=== PATIENT | female | born 1965 | race Caucasian/White ===

== ENCOUNTER → 2016-10-20 | Outpatient (REF) | payer OTHER | LOC: M SFHCPLAZ 10:14 | PROVIDERS: ATTEND Physician Assistant Medical | DX: M51.36 Other intervertebral disc degeneration, lumbar region (principal) ==

== ENCOUNTER → 2021-04-10 | Outpatient (CLI) | payer OTHER ==
--- NOTE | 2021-04-11 00:32 | ECWPNPC ---
PATIENT NAME: PAMELA DAVIDSON : 1965 GENDER: FEMALE VISIT DATE: 04/10/2021 DISCHARGE DATE: 04/10/21940 VISIT LOCKED DATE TIME: PHYSICIAN: TIESHA RINALDI PHYSICIAN PAGER NO: ACTIVE RESOURCE: TIESHA RINALDI REASON FOR APPOINTMENT 1. CHRONIC PAIN W/RHEUMATOID ARTHRITIS AND DJD LUMBAR SPINE HISTORY OF PRESENT ILLNESS GENERAL: HPI 55-YEAR-OLD FEMALE IN FOR INITIAL PAIN CONSULT REGARDING CHRONIC PAIN STEMMING FROM RHEUMATOID ARTHRITIS. PATIENT HAS BEEN ON PERCOCET 5/325 MG 3 TIMES DAILY DOSING IN THE PAST WITH GOOD RELIEF HOWEVER THE DOCTOR THAT WAS PREVIOUSLY PRESCRIBING THAT FOR HER HAD LEFT AND THE NEW DOCTOR DROPPED HER DOWN TO TWICE DAILY DOSING. SINCE THE DECREASE IN DOSAGE PATIENT ADMITS TO INCREASED SYMPTOMS. SHE RATES HER PAIN CURRENTLY AT A 7 OUT OF 10 AND DESCRIBES IT ACHING, AND THROBBING.. - - -. FALL RISK SCREENING: SCREENING : NO FALLS REPORTED IN THE LAST YEAR , : NO FALLS REPORTED IN THE LAST YEAR. PAIN SCREENING: PATIENT HAS A COMPLAINT OF ACUTE OR CHRONIC PAIN :YES LOCATION OF PAIN:LOW BACK, LEFT HIP, RIGHT HIP, FEET, OTHER: LEFT FOOT, KNUCKLES INTENSITY OF PAIN (SCALE OF 1 TO 10):7 WHAT DOES YOUR PAIN FEEL LIKE:ACHING, THROBBING, SORE, OTHER TIGHTNESS DURATION:CONTINOUS, CONSTANT, ALL DAY PAIN IS INCREASED BY:ACTIVITIES, PROLONGED STANDING, OTHERS COLD WEATHER PAIN IS DECREASED BY:USE OF PAIN MEDICATIONS, OTHERS WARM BATH NURSING NOTE: - - -. PAIN CENTER INTAKE QUESTIONS: DO YOU HAVE A HISTORY OF MRSA? :NO DO YOU TAKE A BLOOD THINNERS? :NO DO YOU HAVE ANY BLEEDING DISORDERS? :NO ANY NEW NUMBNESS OR WEAKNESS IN YOUR LEGS OR ARMS? :NO ANY PACEMAKER,DEFIBRILLATOR, OR DORSAL COLUMN STIMULATOR? :NO DO YOU HAVE ANY RASHES OR OPEN SORES? :NO ARE YOU ALLERGIC TO IV DYE? :NO ARE YOU DIABETIC? :NO ANY NEW PROBLEMS WITH YOUR MEDICATIONS? :NO HAVE YOU RECEIVED A VACCINE IN THE PAST 30 DAYS? :NO DO YOU PLAN TO RECEIVE A VACCINE IN THE NEXT 21 DAYS? :NO DO YOU NEED ANY PRESCRIPTION? :NO DO YOU TAKE ANY IMMUNOSUPPRESSIVE MEDICATIONS? :YES ENBREL WEEKLY, LEFLUNAMIDE DAILY IS THERE A CHANCE YOU COULD BE ? :NO ARE YOU BREAST FEEDING? :NO CURRENT MEDICATIONS TAKING ENBREL SURECLICK 50 MG/ML SOLUTION AUTO-INJECTOR DIRECTED SUBCUTANEOUS WEEKLY ON FRIDAYS TAKING FOLIC ACID 1 MG TABLET 1 TABLET ORALLY ONCE A DAY TAKING LEFLUNOMIDE 20 MG TABLET 1 TABLET ORALLY ONCE A DAY TAKING ESOMEPRAZOLE MAGNESIUM 20 MG CAPSULE DELAYED RELEASE 1 CAPSULE ORALLY ONCE A DAY TAKING PEPCID 20 MG TABLET 1 TABLET AT MEALTIME ORALLY ONCE A DAY TAKING K-TAB 20 MEQ TABLET EXTENDED RELEASE 1 TABLET WITH FOOD ORALLY ONCE A DAY TAKING VITAMIN D3 MAXIMUM STRENGTH 125 MCG (5000 UT) CAPSULE DIRECTED ORALLY DAILY TAKING MAGNESIUM 400 MG CAPSULE DIRECTED ORALLY DAILY TAKING AMLODIPINE BESYLATE 10 MG TABLET 1 TABLET ORALLY ONCE A DAY TAKING PERCOCET 5-325 MG TABLET 1 TABLET ORALLY BID NEEDED NOT-TAKING METFORMIN HCL ER 500 MG TABLET EXTENDED RELEASE 24 HOUR 1 TABLET WITH EVENING MEAL ORALLY ONCE A DAY NOT-TAKING GUAIFENESIN ER 1200 MG TABLET EXTENDED RELEASE 12 HOUR 1 TABLET NEEDED ORALLY EVERY 12 HRS NOT-TAKING BACLOFEN 10 MG TABLET 1 HALF TABLET WITH FOOD OR MILK ORALLY TWICE DAILY NEEDED NOT-TAKING CELEBREX 100 MG CAPSULE 1 CAPSULE ORALLY TWICE A DAY NOT-TAKING NEXIUM 40 MG CAPSULE DELAYED RELEASE 1 CAPSULE ORALLY ONCE A DAY NOT-TAKING SIMVASTATIN 20 MG TABLET 1 TABLET IN THE EVENING ORALLY ONCE A DAY NOT-TAKING PROTONIX 40 MG TABLET DELAYED RELEASE 1 TABLET ORALLY ONCE A DAY MEDICATION LIST REVIEWED AND RECONCILED WITH THE PATIENT PAST MEDICAL HISTORY LUMBAR DEGENERATIVE DISC DISEASE GERD (GASTROESOPHAGEAL REFLUX DISEASE) HTN (HYPERTENSION) RHEUMATOID ARTHRITIS KIDNEY STONE HYDRONEPHROSIS URINARY TRACT INFECTION COVID ALLERGIES FENTANYL: DYSPNEA,RASH - ALLERGY SURGICAL HISTORY TONSILLECTOMY 1999 APPENDECTOMY CHILD CHOLECYSTECTOMY TEEN TUBAL 1989 RUBY BSO 2006 URETER REPAIR BLADDER LIFT 2007 HERNIA ABCESS 2008 LAP BAND 2009 COLONOSCOPY 2012 HYSTERECTOMY FAMILY HISTORY FATHER: 68 YRS MOTHER: 75 YRS SOCIAL HISTORY GENERAL: TOBACCO USE ARE YOU A:NONSMOKER NEVER SMOKER LATEX QUESTIONNAIRE LATEX ALLERGY : HAVE YOU EVER DEVELOPED ANY TYPE OF REACTION AFTER HANDLING LATEX PRODUCTS SUCH RUBBER GLOVES, CONDOMS, DIAPHRAGMS, BALLOONS, SOCKS, OR UNDERWEAR?NO LATEX ALLERGY : HAVE YOU EVER DEVELOPED ANY TYPE OF REACTION DURING OR AFTER DENTAL APPOINTMENT, VAGINAL/RECTAL EXAMINATION, SURGICAL PROCEDURE, OR ANY OTHER EXPOSURE?NO LATEX RISK : HAVE YOU EVER HAD ANY DIFFICULTY BREATHING OR HIVES AFTER EATING OR HANDLING ANY FRUITS, OR VEGETABLES; SUCH KIWI, BANANAS, STONE FRUITS, OR CHESTNUTSNO LATEX RISK : DO YOU HAVE A PREVIOUS PERSONAL HISTORY OF MORE THAN NINE SURGERIES, SPINA BIFIDA, OR REPEATED CATHERIZATIONS? YES - PLEASE INDICATE : > 9 SURGERIES LATEX RISK : ARE YOU FREQUENTLY EXPOSED TO LATEX PRODUCTS IN YOUR OCCUPATION?NO DATE ASKED : 04/10/2021 ALCOHOL USE: NO. BMI CARE GOAL FOLLOW-UP ABOVE NORMAL BMI FOLLOW-UPGIVING ENCOURAGEMENT TO EXERCISE RECREATIONAL DRUG USE DRUG USE?NO CAFFEINE CAFFEINE USE?NO LANGUAGE LANGUAGES SPOKEN:LAO LEARNING BARRIERS / SPECIAL NEEDS CHANGE FROM LAST VISIT?NO BARRIERS TO LEARNING?NO HEARING IMPAIRED?NO VISION IMPAIRED?YES :CORRECTIVE LENSES COGNITIVELY IMPAIRED?NO READINESS TO LEARN?YES LEARNING PREFERENCES?NO LEARNING CAPABILITIES PRESENT?YES EMOTIONAL BARRIERS?NO SPECIAL DEVICES?NO SPINDLE MAKER NEEDED?NO HOSPITALIZATION/MAJOR DIAGNOSTIC PROCEDURE HYPERTENSIVE URGENCY 2015 SURGERY RELATED REVIEW OF SYSTEMS CONSTITUTIONAL: ANY RECENT FEVER NO . CHILLS NO . WEIGHT CHANGE OF UNKNOWN REASONS NO . MUSCULOSKELETAL: ANY UNUSUAL JOINT PAIN OR SWELLING NOT MENTIONED NO . SYSTEMIC LUPUS NO . ANY NEUROMUSCULAR DISORDER NOT MENTIONED NO . LYME DISEASE NO . GASTROENTEROLOGY: ANY NEW CHANGE IN BOWEL CONTROL? NO . HISTORY OF LIVER DISORDER NOT MENTIONED NO . HISTORY OF UNUSUAL ABDOMINAL PAIN OR CRAMPING NOT MENTIONED NO . NO CONSTIPATION. GENITOURINARY: ANY NEW CHANGE IN BLADDER CONTROL? NO . ANY RENAL/KIDNEY CONDITON NOT MENTIONED NO . NEUROLOGY: HISTORY OF TBI NOT MENTIONED NO . OTHER NEW NUMBNESS OR PAIN PATTERNS NOT MENTIONED NO . NEW ONSET DIZZINESS OR NEUROLOGICAL CHANGES NOT MENTIONED NO . HISTORY OF SEVERE HEADACHES NOT MENTIONED NO . HISTORY OF STROKE OR NEUROLOGICAL DISORDER NOT MENTIONED NO . CARDIOLOGY: HEART SURGERY NO . CONGESTIVE HEART FAILURE/FLUID OVERLOAD NOT MENTIONED NO . HISTORY OF CHEST PAIN,IRREGULAR HEART BEAT NOT MENTIONED NO . RESPIRATORY: SHORTNESS OF BREATH ON EXERTION, WHEEZES, UNUSUAL COUGH NOT MENTIONED NO . ENDOCRINOLOGY: ADRENAL GLAND OR THYROID DISORDERS NOT MENTIONED NO . UNUSUAL URINATION, DIZZINESS OR LETHARGY NOT MENTIONED NO . VITAL SIGNS WT 188.6 LBS, WT-KG 85.55 KG, HT 65 IN, BMI 31.38 INDEX, BP 180/105 MM HG, REPEAT BP 152/94 MANUAL, HR 84 /MIN, RR 18 /MIN, TEMP 97.4 F, OXYGEN SAT % 97%, SAFE IN ENV? (Y/N) YES, NA INITIALS AW [id number], REVIEWED BY: Everett ANTONY RN. EXAMINATION GENERAL EXAMINATION: GENERALNO ACUTE DISTRESS, WELL NOURISHED AND HYDRATED. PSYCHAPPROPRIATE MOOD AND AFFECT . LUNGS:CLEAR TO AUSCULTATION BILATERALLY, NO WHEEZES, RHONCHI, RALES. HEART:NO MURMURS, REGULAR RATE AND RHYTHM. ASSESSMENTS RHEUMATOID ARTHRITIS, UNSPECIFIED - M06.9 (PRIMARY) USE OF OPIATES FOR THERAPEUTIC PURPOSES - Z79.891 TREATMENT RHEUMATOID ARTHRITIS, UNSPECIFIED NOTES: 55-YEAR-OLD FEMALE IN FOR INITIAL PAIN CONSULT REGARDING RHEUMATOID ARTHRITIS. GIVEN PRESENTING SYMPTOMS RECOMMEND RETURNING PATIENT TO PERCOCET 5/325 MG 3 TIMES DAILY DOSING WITH FOLLOW-UP IN 2 MONTHS TO DETERMINE EFFICACY OF TREATMENT. PATIENT HAS EXPRESSED UNDERSTANDING OF AND WAS IN AGREEMENT WITH TREATMENT PLAN. GIVEN TIME TO ASK QUESTIONS AND EXPRESS CONCERNS. [employer] REGISTRY REVIEWED AND DEMONSTRATES COMPLLIANCE. (REF # [id number] ). USE OF OPIATES FOR THERAPEUTIC PURPOSES LAB: URINE TEST GROUP [id number] 04/10/2021 9:38:58 AM > PERCOCET LAST DOSE 04/09/2021 PROCEDURE CODES FA211 ESTABILISHED PATIENT [facility]LY [facility] CHARGE DISPOSITION & COMMUNICATION FOLLOW UP 2 MONTHS (REASON: RA) ELECTRONICALLY SIGNED BY BRO AMATO ON 04/10/2021 AT 09:47 AM EDT DISCLAIMER : THIS IS A VISIT SUMMARY EXTRACTED FROM THE [employer] CHART. IT IS NOT A COPY OF THE [employer] PROGRESS NOTE. MTDD
== END ==
LOC: M PAIN 08:30
PROVIDERS: ATTEND Family Medicine
DX: M06.9 Rheumatoid arthritis, unspecified (principal); G89.29 Other chronic pain; K21.9 Gastro-esophageal reflux disease without esophagitis; Z88.5 Allergy status to narcotic agent; Z79.899 Other long term (current) drug therapy

== ENCOUNTER → 2021-08-15 | Outpatient (CLI) | payer OTHER | LOC: M PAIN 10:30 | PROVIDERS: ATTEND Anesthesiology | DX: M51.16 Intervertebral disc disorders with radiculopathy, lumbar region (principal); M06.9 Rheumatoid arthritis, unspecified; S42.309A Unspecified fracture of shaft of humerus, unspecified arm, initial encounter for closed fracture; G89.29 Other chronic pain; K21.9 Gastro-esophageal reflux disease without esophagitis; Z88.5 Allergy status to narcotic agent; Z79.899 Other long term (current) drug therapy ==

== ENCOUNTER → 2022-06-11 | Outpatient (CLI) | payer OTHER, SELFPAY | LOC: M PAIN 11:00 | PROVIDERS: ATTEND Nurse Practitioner Family | DX: M51.16 Intervertebral disc disorders with radiculopathy, lumbar region (principal); G89.29 Other chronic pain; K21.9 Gastro-esophageal reflux disease without esophagitis; I10 Essential (primary) hypertension; M06.9 Rheumatoid arthritis, unspecified; Z88.5 Allergy status to narcotic agent; Z79.899 Other long term (current) drug therapy ==

== ENCOUNTER → 2022-09-10 | Outpatient (CLI) | payer OTHER | LOC: M PAIN 09:30 | PROVIDERS: ATTEND Nurse Practitioner Family | DX: M51.16 Intervertebral disc disorders with radiculopathy, lumbar region (principal); G89.29 Other chronic pain; K21.9 Gastro-esophageal reflux disease without esophagitis; I10 Essential (primary) hypertension; M06.9 Rheumatoid arthritis, unspecified; Z88.5 Allergy status to narcotic agent; Z79.899 Other long term (current) drug therapy ==

== ENCOUNTER → 2022-11-18 | Outpatient (REF) | payer OTHER ==
[2022-11-18 14:23] LABS: TOTAL PROTEIN,RANDOM URINE 38.5 MG/DL (0.0-14.0)
[2022-11-18 14:25] LABS: APPEARANCE, URINE CLEAR (CLEAR); BACTERIA, URINE AUTO NEGATIVE (NEGATIVE); BILIRUBIN, URINE AUTO NEGATIVE (NEGATIVE); BLOOD, URINE BLOOD NEGATIVE (NEGATIVE); COLOR, URINE YELLOW (YELLOW); GLUCOSE, URINE (UA) AUTO NEGATIVE (NEGATIVE); KETONE, URINE AUTO TRACE mg/dL (NEGATIVE); LEUKOCYTE ESTERASE, URINE AUTO NEGATIVE (NEGATIVE); MUCUS, URINE SMALL (NEGATIVE); NITRITE, URINE AUTO NEGATIVE (NEGATIVE); PROTEIN, URINE AUTO NEGATIVE (NEGATIVE); RBC, URINE AUTO 1 /HPF (0-3); SQUAMOUS EPITHELIAL CELL UR AU 0 /HPF (0-6); UROBILINOGEN, URINE AUTO 0.2 mg/dL (0.0-2.0); WBC, URINE AUTO 1 /HPF (0-3)
[2022-11-18 14:29] LABS: CREATININE,RANDOM URINE 173.9 MG/DL
== END ==
LOC: M SFHCRHEU 09:01
PROVIDERS: ATTEND Internal Medicine Rheumatology
DX: M05.79 Rheumatoid arthritis with rheumatoid factor of multiple sites without organ or systems involvement (principal); R76.8 Other specified abnormal immunological findings in serum; Z79.899 Other long term (current) drug therapy; M15.9 Polyosteoarthritis, unspecified

== ENCOUNTER → 2022-11-23 | Outpatient (REF) | payer OTHER ==
[2022-11-23 15:16] LABS: BASO % 0.4 % (0.0-1.0); EOS # 0.3 10^3/uL (0.0-0.5); EOS % 3.2 % (0.0-3.0); HEMATOCRIT 38.7 % (36.0-47.0); HEMOGLOBIN 12.4 g/dl (12.0-15.5); LYMPH # 1.9 10^3/uL (1.5-5.0); LYMPH % 20.7 % (24.0-44.0); MEAN CORPUSCULAR HEMOGLOBIN 25.6 pg (27.0-33.0); MEAN CORPUSCULAR VOLUME 79.8 fl (80.0-96.0); MONO # 0.7 10^3/uL (0.0-0.8); MONO % 7.1 % (2.0-8.0); NEUTROPHILS # 6.4 10^3/uL (1.5-8.5); NEUTROPHILS % 68.3 % (36.0-66.0); PLATELET COUNT, AUTOMATED 332 10^3/uL (150-450); RED BLOOD COUNT 4.85 10^6/uL (4.00-5.40); WHITE BLOOD COUNT 9.3 10^3/uL (4.0-10.0)
[2022-11-23 15:22] LABS: COMPLEMENT C4 35.5 MG/DL (12-36); IMMUNOGLOBULIN A 197.9 MG/DL (40-350); IMMUNOGLOBULIN G 860 MG/DL (650-1600); IMMUNOGLOBULIN M 70.8 MG/DL (50-300)
[2022-11-23 15:27] LABS: ALBUMIN 3.2 G/DL (3.2-5.2); ALKALINE PHOSPHATASE 96 U/L (46-116); ALT/SGPT < 9 U/L (7.0-40); AST/SGOT 13 U/L (<34); BILIRUBIN,TOTAL 0.4 MG/DL (0.3-1.2); BLOOD UREA NITROGEN 15 MG/DL (9-23); CALCIUM LEVEL 8.1 MG/DL (8.5-10.1); CARBON DIOXIDE LEVEL 24 MMOL/L (20-31); CHLORIDE LEVEL 107 MMOL/L (98-107); CREATININE FOR GFR 0.84 MG/DL (0.55-1.30); GLOMERULAR FILTRATION RATE > 60.0 (>51); GLUCOSE, FASTING 134 MG/DL (60-100); SODIUM LEVEL 140 MMOL/L (136-145); TOTAL PROTEIN 6.1 G/DL (5.7-8.2)
[2022-11-23 15:30] LABS: ERYTHROCYTE SEDIMENTATION RATE 42 mm/hr (0-30)
[2022-11-23 15:41] LABS: HEPATITIS B SURFACE ANTIGEN NEGATIVE (NEGATIVE)
[2022-11-23 16:03] LABS: HEPATITIS B CORE ANTIBODY IGM NEGATIVE (NEGATIVE); HEPATITIS C VIRUS ABY INDEX 0.1 INDEX (<0.8)
== END ==
LOC: M SFHCRHEU 09:01
PROVIDERS: ATTEND Internal Medicine Rheumatology
DX: M05.79 Rheumatoid arthritis with rheumatoid factor of multiple sites without organ or systems involvement (principal); R76.8 Other specified abnormal immunological findings in serum; Z79.899 Other long term (current) drug therapy; M15.9 Polyosteoarthritis, unspecified

== ENCOUNTER → 2022-12-14 | Outpatient (CLI) | payer OTHER | LOC: M PAIN 10:15 | PROVIDERS: ATTEND Nurse Practitioner Family | DX: M51.16 Intervertebral disc disorders with radiculopathy, lumbar region (principal); G89.29 Other chronic pain; K21.9 Gastro-esophageal reflux disease without esophagitis; I10 Essential (primary) hypertension; M06.9 Rheumatoid arthritis, unspecified; Z88.5 Allergy status to narcotic agent; Z79.899 Other long term (current) drug therapy ==

== ENCOUNTER → 2023-04-12 | Outpatient (CLI) | payer OTHER | LOC: M PAIN 10:00 | PROVIDERS: ATTEND Nurse Practitioner Family | DX: M51.16 Intervertebral disc disorders with radiculopathy, lumbar region (principal); G89.29 Other chronic pain; K21.9 Gastro-esophageal reflux disease without esophagitis; I10 Essential (primary) hypertension; M06.9 Rheumatoid arthritis, unspecified; Z88.5 Allergy status to narcotic agent; Z79.899 Other long term (current) drug therapy ==

== ENCOUNTER 2023-05-19 13:23 | Outpatient (CLI) | payer OTHER ==
[~2023-05-19] VITALS: Ht 165.1 cm; Wt 90.5 kg
[~2023-05-19 13:23] MED LIST: ALBUTEROL SULFATE 2.5MG/0.5ML INH NEB SOLN INH PRN; EPINEPHrine INJ 1 MG/ML 1ML AMP IM PRN; diphenhydrAMINE 50MG/ML VIAL IV PRN; methylPREDNISolone 125MG 2ML VIAL IV PRN
[2023-05-19 14:00] VITALS: BP 168/88; TEMP 97.8; O2SAT 98
[2023-05-19] MEDS ORDERED: inFLIXimab INJECTION 300 MG in NS 220 ML IV ONE (14:00)
[2023-05-19] MEDS ORDERED: diphenhydrAMINE 50MG PO PRIOR TO INFUSION PO ONE (14:00)
[2023-05-19] MEDS ORDERED: ACETAMINOPHEN 650MG ER TAB (TYLENOL ARTHRITIS) PO ONE (14:05)
[2023-05-19] MEDS ORDERED: SPIR-10 PO (14:08)
[2023-05-19] MEDS ORDERED: LABE100T71 PO (14:08)
[2023-05-19] MEDS ORDERED: LISI10TA22 PO (14:08)
[2023-05-19] MEDS ORDERED: PERCOCET PO (14:08)
[2023-05-19] MEDS ORDERED: AMLO25TA PO (14:08)
[2023-05-19] MEDS ORDERED: PLAQ200T4 PO (14:10)
[2023-05-19 14:55] VITALS: BP 148/90; TEMP 97.4; O2SAT 98
[2023-05-19 15:10] VITALS: BP 140/88; TEMP 97.8; O2SAT 99
[2023-05-19 15:25] VITALS: BP 138/82; TEMP 98; O2SAT 97
[2023-05-19 16:10] VITALS: BP 150/90; TEMP 98; O2SAT 98
[2023-05-19 17:10] VITALS: BP 138/88; TEMP 98.7; O2SAT 99
== END 2023-05-19 17:15 | disposition home or self-care (01) ==
LOC: M INFU 13:23
PROVIDERS: ATTEND Internal Medicine Rheumatology
DX: M05.79 Rheumatoid arthritis with rheumatoid factor of multiple sites without organ or systems involvement (principal)
CPT/HCPCS: 96413; 96415; J1745

== ENCOUNTER → 2023-10-07 | Outpatient (REF) | payer OTHER ==
[~2023-10-07] MED LIST changes: -ALBUTEROL SULFATE 2.5MG/0.5ML INH NEB SOLN INH PRN; +AMLO25TA PO; -EPINEPHrine INJ 1 MG/ML 1ML AMP IM PRN; +LABE100T71 PO; +LISI10TA22 PO; +PERCOCET PO; +PLAQ200T4 PO; +SPIR-10 PO; -diphenhydrAMINE 50MG/ML VIAL IV PRN; -methylPREDNISolone 125MG 2ML VIAL IV PRN
== END ==
LOC: M SFHCRHEU 09:32
PROVIDERS: ATTEND Internal Medicine Rheumatology
DX: M05.79 Rheumatoid arthritis with rheumatoid factor of multiple sites without organ or systems involvement (principal); R76.8 Other specified abnormal immunological findings in serum; Z79.899 Other long term (current) drug therapy; M15.9 Polyosteoarthritis, unspecified

== ENCOUNTER 2023-10-20 12:38 | Outpatient (CLI) | payer OTHER ==
[~2023-10-20] VITALS: Ht 165.1 cm; Wt 87.7 kg
[~2023-10-20 12:38] MED LIST changes: +ALBUTEROL SULFATE 2.5MG/0.5ML INH NEB SOLN INH PRN; +EPINEPHrine INJ 1 MG/ML 1ML AMP IM PRN; +diphenhydrAMINE 50MG/ML VIAL IV PRN; +methylPREDNISolone 125MG 2ML VIAL IV PRN
[2023-10-20] MEDS: diphenhydrAMINE 50MG PO PRIOR TO INFUSION PO ONE (14:44)
[2023-10-20] MEDS: ACETAMINOPHEN 650MG ER TAB (TYLENOL ARTHRITIS) PO ONE (14:44)
[2023-10-20] MEDS: inFLIXimab INJECTION 300 MG in NS 220 ML IV ONE (15:13)
[2023-10-20 15:15] VITALS: BP 179/117; TEMP 98; O2SAT 96
[2023-10-20 15:30] VITALS: BP 173/102; TEMP 98.2; O2SAT 98
[2023-10-20 16:00] VITALS: BP 128/93; TEMP 97.8; O2SAT 95
[2023-10-20 17:13] VITALS: BP 135/92; TEMP 98; O2SAT 98
== END 2023-10-20 17:30 ==
LOC: M INFU 12:38
PROVIDERS: ATTEND Internal Medicine Rheumatology
DX: M05.79 Rheumatoid arthritis with rheumatoid factor of multiple sites without organ or systems involvement (principal); Z88.8 Allergy status to other drugs, medicaments and biological substances
CPT/HCPCS: 96413; 96415; J1745

== ENCOUNTER → 2023-11-15 | Outpatient (CLI) | payer OTHER ==
[~2023-11-15] MED LIST changes: -ALBUTEROL SULFATE 2.5MG/0.5ML INH NEB SOLN INH PRN; -EPINEPHrine INJ 1 MG/ML 1ML AMP IM PRN; +LABE100T40 PO; -LABE100T71 PO; -diphenhydrAMINE 50MG/ML VIAL IV PRN; -methylPREDNISolone 125MG 2ML VIAL IV PRN
== END ==
LOC: M PAIN 11:00
PROVIDERS: ATTEND Nurse Practitioner Family
DX: M51.16 Intervertebral disc disorders with radiculopathy, lumbar region (principal); Z79.891 Long term (current) use of opiate analgesic; G89.29 Other chronic pain; K21.9 Gastro-esophageal reflux disease without esophagitis; I10 Essential (primary) hypertension; M06.9 Rheumatoid arthritis, unspecified; Z79.52 Long term (current) use of systemic steroids; Z79.899 Other long term (current) drug therapy; Z88.5 Allergy status to narcotic agent

== ENCOUNTER 2023-11-18 13:20 | Outpatient (CLI) | payer OTHER ==
[~2023-11-18] VITALS: Ht 165.1 cm; Wt 87.7 kg
[2023-11-18] VITALS (7 sets, daily range): BP systolic 110–132; BP diastolic 58–82; TEMP 96.9–98.5; O2SAT 97–99
[~2023-11-18 13:20] MED LIST changes: +ALBUTEROL SULFATE 2.5MG/0.5ML INH NEB SOLN INH PRN; +EPINEPHrine INJ 1 MG/ML 1ML AMP IM PRN; +diphenhydrAMINE 50MG/ML VIAL IV PRN; +methylPREDNISolone 125MG 2ML VIAL IV PRN
[2023-11-18] MEDS: ACETAMINOPHEN 650MG ER TAB (TYLENOL ARTHRITIS) PO ONE (14:12)
[2023-11-18] MEDS: diphenhydrAMINE 50MG PO PRIOR TO INFUSION PO ONE (14:13)
[2023-11-18] MEDS: inFLIXimab INJECTION 300 MG in NS 220 ML IV ONE (14:39)
== END 2023-11-18 17:08 ==
LOC: M INFU 13:20
PROVIDERS: ATTEND Internal Medicine Rheumatology
DX: M05.79 Rheumatoid arthritis with rheumatoid factor of multiple sites without organ or systems involvement (principal); Z88.8 Allergy status to other drugs, medicaments and biological substances
CPT/HCPCS: 96413; 96415; J1745

== ENCOUNTER → 2023-11-18 | Outpatient (CLI) | payer OTHER | LOC: M PAIN 11:00 | PROVIDERS: ATTEND Nurse Practitioner Family | DX: Z79.891 Long term (current) use of opiate analgesic (principal) ==

== ENCOUNTER → 2023-11-19 | Outpatient (CLI) | payer OTHER ==
[~2023-11-19] MED LIST changes: -ALBUTEROL SULFATE 2.5MG/0.5ML INH NEB SOLN INH PRN; -EPINEPHrine INJ 1 MG/ML 1ML AMP IM PRN; -diphenhydrAMINE 50MG/ML VIAL IV PRN; -methylPREDNISolone 125MG 2ML VIAL IV PRN
== END ==
LOC: M PAIN 08:00
PROVIDERS: ATTEND Nurse Practitioner Family
DX: Z79.891 Long term (current) use of opiate analgesic (principal)

== ENCOUNTER 2024-01-13 13:00 | Outpatient (CLI) | payer MEDICARE, OTHER, SELFPAY ==
[2024-01-13 12:50] VITALS: BP 140/70; O2SAT 98
[2024-01-13] MEDS: ACETAMINOPHEN 650MG ER TAB (TYLENOL ARTHRITIS) PO ONE (12:56)
[2024-01-13] MEDS: diphenhydrAMINE 50MG PO PRIOR TO INFUSION PO ONE (12:56)
[~2024-01-13 13:00] MED LIST changes: +ALBUTEROL SULFATE 2.5MG/0.5ML INH NEB SOLN INH PRN; +EPINEPHrine INJ 1 MG/ML 1ML AMP IM PRN; +diphenhydrAMINE 50MG/ML VIAL IV PRN; +methylPREDNISolone 125MG 2ML VIAL IV PRN
[2024-01-13] MEDS: inFLIXimab INJECTION 300 MG in NS 220 ML IV ONE (14:03)
[2024-01-13 14:15] VITALS: BP 161/98; O2SAT 98
[2024-01-13 15:00] VITALS: BP 166/97; O2SAT 97
== END 2024-01-13 15:05 | disposition home or self-care (01) ==
LOC: M INFU 13:00
PROVIDERS: ATTEND Internal Medicine Rheumatology
DX: M05.79 Rheumatoid arthritis with rheumatoid factor of multiple sites without organ or systems involvement (principal); Z88.8 Allergy status to other drugs, medicaments and biological substances
CPT/HCPCS: 96413; J1745

== ENCOUNTER → 2024-02-15 | Outpatient (CLI) | payer MEDICARE ==
[~2024-02-15] MED LIST changes: -ALBUTEROL SULFATE 2.5MG/0.5ML INH NEB SOLN INH PRN; -EPINEPHrine INJ 1 MG/ML 1ML AMP IM PRN; -diphenhydrAMINE 50MG/ML VIAL IV PRN; -methylPREDNISolone 125MG 2ML VIAL IV PRN
== END ==
LOC: M PAIN 10:00
PROVIDERS: ATTEND Nurse Practitioner Family
DX: M51.16 Intervertebral disc disorders with radiculopathy, lumbar region (principal); Z79.891 Long term (current) use of opiate analgesic; G89.29 Other chronic pain; K21.9 Gastro-esophageal reflux disease without esophagitis; I10 Essential (primary) hypertension; M06.9 Rheumatoid arthritis, unspecified; Z79.899 Other long term (current) drug therapy; Z88.5 Allergy status to narcotic agent

== ENCOUNTER 2024-03-08 13:15 | Outpatient (CLI) | payer MEDICARE, OTHER ==
[~2024-03-08] VITALS: Ht 165.1 cm; Wt 83.5 kg
[2024-03-08 13:10] VITALS: BP 138/88; O2SAT 97
[~2024-03-08 13:15] MED LIST changes: +ALBUTEROL SULFATE 2.5MG/0.5ML INH NEB SOLN INH PRN; +EPINEPHrine INJ 1 MG/ML 1ML AMP IM PRN; +diphenhydrAMINE 50MG/ML VIAL IV PRN; +methylPREDNISolone 125MG 2ML VIAL IV PRN
[2024-03-08] MEDS: diphenhydrAMINE 50MG PO PRIOR TO INFUSION PO ONE (13:21)
[2024-03-08] MEDS: ACETAMINOPHEN 650MG ER TAB (TYLENOL ARTHRITIS) PO ONE (13:21)
[2024-03-08] MEDS: inFLIXimab INJECTION 300 MG in NS 220 ML IV ONE (13:53)
[2024-03-08 14:10] VITALS: BP 156/82; TEMP 98; O2SAT 99
[2024-03-08 15:05] VITALS: BP 136/74; O2SAT 99
== END 2024-03-08 15:10 ==
LOC: M INFU 13:15
PROVIDERS: ATTEND Internal Medicine Rheumatology
DX: M05.79 Rheumatoid arthritis with rheumatoid factor of multiple sites without organ or systems involvement (principal); Z88.8 Allergy status to other drugs, medicaments and biological substances
CPT/HCPCS: 96413; J1745

== ENCOUNTER 2024-05-03 13:06 | Outpatient (CLI) | payer MEDICARE, OTHER ==
[~2024-05-03] VITALS: Ht 165.1 cm; Wt 81.8 kg
[2024-05-03 13:15] VITALS: BP 140/95; O2SAT 97
[2024-05-03] MEDS: diphenhydrAMINE 50MG PO PRIOR TO INFUSION PO ONE (13:23)
[2024-05-03] MEDS: ACETAMINOPHEN 650MG ER TAB (TYLENOL ARTHRITIS) PO ONE (13:23)
[2024-05-03] MEDS: inFLIXimab INJECTION 300 MG in NS 220 ML IV ONE (13:45)
[2024-05-03 14:09] VITALS: BP 136/76; O2SAT 95
[2024-05-03 14:50] VITALS: BP 115/71; O2SAT 99
== END 2024-05-03 15:00 ==
LOC: M INFU 13:06
PROVIDERS: ATTEND Internal Medicine Rheumatology
DX: M05.79 Rheumatoid arthritis with rheumatoid factor of multiple sites without organ or systems involvement (principal); Z88.8 Allergy status to other drugs, medicaments and biological substances
CPT/HCPCS: 96413; J1745

== ENCOUNTER → 2024-05-10 | Outpatient (REF) | payer MEDICARE ==
[~2024-05-10] MED LIST changes: -ALBUTEROL SULFATE 2.5MG/0.5ML INH NEB SOLN INH PRN; -EPINEPHrine INJ 1 MG/ML 1ML AMP IM PRN; -diphenhydrAMINE 50MG/ML VIAL IV PRN; -methylPREDNISolone 125MG 2ML VIAL IV PRN
== END ==
LOC: M SFHCRHEU 10:57
PROVIDERS: ATTEND Internal Medicine Rheumatology
DX: M06.9 Rheumatoid arthritis, unspecified (principal)

== ENCOUNTER → 2024-07-10 | Outpatient (CLI) | payer MEDICARE | LOC: M PAIN 10:15 | PROVIDERS: ATTEND Nurse Practitioner Family | DX: M51.16 Intervertebral disc disorders with radiculopathy, lumbar region (principal); Z79.891 Long term (current) use of opiate analgesic; G89.29 Other chronic pain; K21.9 Gastro-esophageal reflux disease without esophagitis; I10 Essential (primary) hypertension; M06.9 Rheumatoid arthritis, unspecified; Z79.899 Other long term (current) drug therapy; Z88.5 Allergy status to narcotic agent ==

== ENCOUNTER 2024-09-28 08:25 | Outpatient (CLI) | payer MEDICARE ==
[~2024-09-28] VITALS: Ht 162.6 cm; Wt 84.1 kg
[~2024-09-28 08:25] MED LIST changes: +ALBUTEROL SULFATE 2.5MG/0.5ML INH NEB SOLN INH PRN; +EPINEPHrine INJ 1 MG/ML 1ML AMP IM PRN; +diphenhydrAMINE 50MG/ML VIAL IV PRN; +methylPREDNISolone 125MG 2ML VIAL IV PRN
[2024-09-28 08:50] VITALS: BP 138/91; O2SAT 96
[2024-09-28] MEDS: ACETAMINOPHEN 650MG PO PRIOR TO INFUSION PO ONE (09:27)
[2024-09-28] MEDS: diphenhydrAMINE 50MG PO PRIOR TO INFUSION PO ONE (09:27)
[2024-09-28] MEDS: inFLIXimab INJECTION 300 MG in NS 220 ML IV ONE (09:52)
[2024-09-28 10:15] VITALS: BP 172/97; O2SAT 98
[2024-09-28 11:00] VITALS: BP 165/93; O2SAT 98
== END 2024-09-28 11:10 ==
LOC: M INFU 08:25
PROVIDERS: ATTEND Internal Medicine Rheumatology
DX: M05.79 Rheumatoid arthritis with rheumatoid factor of multiple sites without organ or systems involvement (principal); Z88.8 Allergy status to other drugs, medicaments and biological substances
CPT/HCPCS: 96413; J1745

== ENCOUNTER 2024-11-23 12:15 | Outpatient (CLI) | payer MEDICARE, OTHER ==
[~2024-11-23] VITALS: Ht 165.1 cm; Wt 86.3 kg
[2024-11-23 12:00] VITALS: BP 116/77; O2SAT 98
[2024-11-23] MEDS: ACETAMINOPHEN 650MG PO PRIOR TO INFUSION PO ONE (12:25)
[2024-11-23] MEDS: diphenhydrAMINE 50MG PO PRIOR TO INFUSION PO ONE (12:25)
[2024-11-23] MEDS: inFLIXimab INJECTION 300 MG in NS 220 ML IV ONE (12:50)
[2024-11-23 13:10] VITALS: BP 111/88; O2SAT 96
[2024-11-23 14:03] VITALS: BP 116/68; O2SAT 100
== END 2024-11-23 14:08 ==
LOC: M INFU 12:15
PROVIDERS: ATTEND Internal Medicine Rheumatology
DX: M05.79 Rheumatoid arthritis with rheumatoid factor of multiple sites without organ or systems involvement (principal); Z88.8 Allergy status to other drugs, medicaments and biological substances
CPT/HCPCS: 96413; J1745

== ENCOUNTER 2025-01-18 12:08 | Outpatient (CLI) | payer MEDICARE, OTHER ==
[~2025-01-18] VITALS: Ht 165.1 cm; Wt 87.3 kg
[~2025-01-18 12:08] MED LIST changes: +ALBUTEROL SULFATE 2.5MG/0.5ML INH CONCENTRATE NEB SOLN INH PRN; -ALBUTEROL SULFATE 2.5MG/0.5ML INH NEB SOLN INH PRN
[2025-01-18] MEDS: diphenhydrAMINE 50MG PO PRIOR TO INFUSION PO ONE (12:49)
[2025-01-18] MEDS: ACETAMINOPHEN 650MG PO PRIOR TO INFUSION PO ONE (12:50)
[2025-01-18 13:10] VITALS: BP 139/85; TEMP 97.7; O2SAT 98
[2025-01-18] MEDS: inFLIXimab INJECTION 300 MG in NS 220 ML IV ONE (13:32)
[2025-01-18 14:39] VITALS: BP 150/88; O2SAT 99
== END 2025-01-18 14:40 | disposition home or self-care (01) ==
LOC: M INFU 12:08
PROVIDERS: ATTEND Internal Medicine Rheumatology
DX: M05.79 Rheumatoid arthritis with rheumatoid factor of multiple sites without organ or systems involvement (principal); Z88.8 Allergy status to other drugs, medicaments and biological substances
CPT/HCPCS: 96413; J1745

== ENCOUNTER 2025-04-19 12:37 | Outpatient (CLI) | payer MEDICARE ==
[~2025-04-19] VITALS: Ht 165.1 cm; Wt 87.3 kg
[~2025-04-19 12:37] MED LIST changes: +ALBUTEROL SULFATE 2.5 MG/0.5 ML INH CONCENTRATE NEB SOLN INH PRN; -ALBUTEROL SULFATE 2.5MG/0.5ML INH CONCENTRATE NEB SOLN INH PRN; +diphenhydrAMINE 50 MG/ML VIAL IV PRN; -diphenhydrAMINE 50MG/ML VIAL IV PRN; -methylPREDNISolone 125MG 2ML VIAL IV PRN
[2025-04-19 13:15] VITALS: BP 129/89; O2SAT 97
[2025-04-19] MEDS: diphenhydrAMINE 50MG PO PRIOR TO INFUSION PO ONE (13:36)
[2025-04-19] MEDS: ACETAMINOPHEN 650MG PO PRIOR TO INFUSION PO ONE (13:37)
[2025-04-19] MEDS: inFLIXimab INJECTION 400 MG in NS 210 ML IV ONE (13:47)
[2025-04-19 14:11] VITALS: BP 150/80; O2SAT 98
[2025-04-19 14:55] VITALS: BP 144/88; O2SAT 98
== END 2025-04-19 14:55 | disposition home or self-care (01) ==
LOC: M INFU 12:37
PROVIDERS: ATTEND Internal Medicine Rheumatology
DX: M05.79 Rheumatoid arthritis with rheumatoid factor of multiple sites without organ or systems involvement (principal); Z88.5 Allergy status to narcotic agent
CPT/HCPCS: 96413; J1745

== ENCOUNTER 2025-05-17 12:27 | Outpatient (CLI) | payer MEDICARE ==
[~2025-05-17] VITALS: Ht 162.6 cm; Wt 85.4 kg
[2025-05-17] MEDS: diphenhydrAMINE 50MG PO PRIOR TO INFUSION PO ONE (13:45)
[2025-05-17] MEDS: ACETAMINOPHEN 650MG PO PRIOR TO INFUSION PO ONE (13:45)
[2025-05-17] MEDS: inFLIXimab INJECTION 400 MG in NS 210 ML IV ONE (13:52)
[2025-05-17 14:59] VITALS: BP 139/92; O2SAT 99
== END 2025-05-17 15:00 | disposition home or self-care (01) ==
LOC: M INFU 12:27
PROVIDERS: ATTEND Internal Medicine Rheumatology
DX: M05.79 Rheumatoid arthritis with rheumatoid factor of multiple sites without organ or systems involvement (principal); Z88.8 Allergy status to other drugs, medicaments and biological substances
CPT/HCPCS: 96365; J1745

== ENCOUNTER → 2025-05-31 | Outpatient (CLI) | payer MEDICARE ==
[~2025-05-31] MED LIST changes: -ALBUTEROL SULFATE 2.5 MG/0.5 ML INH CONCENTRATE NEB SOLN INH PRN; -EPINEPHrine INJ 1 MG/ML 1ML AMP IM PRN; -diphenhydrAMINE 50 MG/ML VIAL IV PRN
[2025-06-06 19:52] LABS: ACETONE SP None Detected; ETHANOL SP None Detected; ISOPROPANOL SP None Detected; METHANOL SP None Detected
== END ==
LOC: M PLALAB 10:54
PROVIDERS: ATTEND Nurse Practitioner Family
DX: Z51.81 Encounter for therapeutic drug level monitoring (principal); Z79.891 Long term (current) use of opiate analgesic

== ENCOUNTER 2025-06-22 11:45 | Outpatient (CLI) | payer MEDICARE ==
[~2025-06-22] VITALS: Ht 165.1 cm; Wt 87.3 kg
[~2025-06-22 11:45] MED LIST changes: +ALBUTEROL SULFATE 2.5 MG/0.5 ML INH CONCENTRATE NEB SOLN INH PRN; +EPINEPHrine INJ 1 MG/ML 1ML AMP IM PRN; +diphenhydrAMINE 50 MG/ML VIAL IV PRN
[2025-06-22 12:23] VITALS: BP 152/94; O2SAT 98
[2025-06-22] MEDS: inFLIXimab INJECTION 500 MG in NS 200 ML IV ONE (13:33)
[2025-06-22 14:08] VITALS: BP 121/80; O2SAT 99
[2025-06-22 14:35] VITALS: BP 116/79; O2SAT 99
== END 2025-06-22 14:35 | disposition home or self-care (01) ==
LOC: M INFU 11:45
PROVIDERS: ATTEND Internal Medicine Rheumatology
DX: M05.79 Rheumatoid arthritis with rheumatoid factor of multiple sites without organ or systems involvement (principal); Z88.8 Allergy status to other drugs, medicaments and biological substances
CPT/HCPCS: 96365; J1745

== ENCOUNTER → 2025-06-27 | Outpatient (REF) | payer MEDICARE ==
[~2025-06-27] MED LIST changes: -ALBUTEROL SULFATE 2.5 MG/0.5 ML INH CONCENTRATE NEB SOLN INH PRN; -EPINEPHrine INJ 1 MG/ML 1ML AMP IM PRN; -diphenhydrAMINE 50 MG/ML VIAL IV PRN
[2025-06-27 15:33] LABS: BASO # 0.0 10^3/uL (0.0-0.2); BASO % 0.2 % (0.0-1.0); EOS # 0.2 10^3/uL (0.0-0.5); EOS % 1.1 % (0.0-3.0); LYMPH # 1.2 10^3/uL (1.5-5.0); LYMPH % 8.8 % (24.0-44.0); MONO # 0.8 10^3/uL (0.0-0.8); MONO % 6.4 % (2.0-8.0); NEUTROPHILS # 10.9 10^3/uL (1.5-8.5); NEUTROPHILS % 83.2 % (36.0-66.0); PLATELET COUNT, AUTOMATED 287 10^3/uL (150-450)
[2025-06-27 16:30] LABS: C REACTIVE PROTEIN QUANTITATIV < 0.50 MG/DL (<1.0)
[2025-06-27 17:46] LABS: ALT/SGPT 15 U/L (7.0-40); AST/SGOT 20 U/L (<34); CALCIUM LEVEL 9.4 MG/DL (8.3-10.6); CARBON DIOXIDE LEVEL 24 MMOL/L (20-31); CHLORIDE LEVEL 105 MMOL/L (98-107); CREATININE FOR GFR 0.88 MG/DL (0.55-1.30); GLOMERULAR FILTRATION RATE 75.2 (>45); POTASSIUM SERUM 4.9 MMOL/L (3.5-5.1); SODIUM LEVEL 141 MMOL/L (136-145)
== END ==
LOC: M SFHCRHEU 09:28
PROVIDERS: ATTEND Internal Medicine Rheumatology
DX: M05.79 Rheumatoid arthritis with rheumatoid factor of multiple sites without organ or systems involvement (principal)

== ENCOUNTER 2025-07-20 12:21 | Outpatient (CLI) | payer MEDICARE ==
[~2025-07-20] VITALS: Ht 165.1 cm; Wt 86.3 kg
[~2025-07-20 12:21] MED LIST changes: +ALBUTEROL SULFATE 2.5 MG/0.5 ML INH CONCENTRATE NEB SOLN INH PRN; +EPINEPHrine INJ 1 MG/ML 1ML AMP IM PRN; +diphenhydrAMINE 50 MG/ML VIAL IV PRN
[2025-07-20 12:30] VITALS: BP 141/94; O2SAT 99
[2025-07-20] MEDS: inFLIXimab INJECTION 500 MG in NS 200 ML IV ONE (13:35)
[2025-07-20 14:00] VITALS: BP 122/80; O2SAT 98
[2025-07-20 14:38] VITALS: BP 112/82; O2SAT 98
[2025-07-20 14:41] VITALS: BP 112/82; TEMP 36.5; O2SAT 98
== END 2025-07-20 14:40 | disposition home or self-care (01) ==
LOC: M INFU 12:21
PROVIDERS: ATTEND Internal Medicine Rheumatology
DX: M05.79 Rheumatoid arthritis with rheumatoid factor of multiple sites without organ or systems involvement (principal); Z88.8 Allergy status to other drugs, medicaments and biological substances
CPT/HCPCS: 96413; J1745

== ENCOUNTER 2025-08-17 12:00 | Outpatient (CLI) | payer MEDICARE ==
[~2025-08-17] VITALS: Ht 165.1 cm; Wt 87.3 kg
[2025-08-17] MEDS: inFLIXimab INJECTION 500 MG in NS 200 ML IV ONE (13:07)
[2025-08-17 14:23] VITALS: BP 125/80; O2SAT 96
== END 2025-08-17 14:25 ==
LOC: M INFU 12:00
PROVIDERS: ATTEND Internal Medicine Rheumatology
DX: M05.79 Rheumatoid arthritis with rheumatoid factor of multiple sites without organ or systems involvement (principal); Z88.8 Allergy status to other drugs, medicaments and biological substances
CPT/HCPCS: 96413; J1745